=== PATIENT | female | born 1960 | race Caucasian/White ===

== ENCOUNTER 2019-01-19 07:14 | Emergency (ER) | payer OTHER ==
[~2019-01-19] VITALS: Wt 70.0 kg
[~2019-01-19 07:14] MED LIST: AZIT250T13 PO; CEPH-443 PO
[2019-01-19] MEDS ORDERED: SOD CHLORIDE 0.9% 500 ML IV STA (07:21)
[2019-01-19] MEDS ORDERED: KETOROLAC 15 MG INJ IV STA (07:21)
[2019-01-19] MEDS ORDERED: LORAZEPAM 0.5 MG TAB PO ONE (07:30)
--- NOTE | 2019-01-19 07:35 | ERD ---
ER Documentation Chief Complaint Chief Complaint chest pressure and shaking sudden onset this am. recent stressors. no sob HPI 58-year-old woman brought in by EMS from home for chest pain, palpitations, anxiety, crying, insomnia since last night. Her recently and she had trouble sleeping because she was thinking about him and became upset and developed the symptoms while in bed. She does have a history of anxiety, denies cough or shortness of breath, no fevers or chills, no vomiting or diarrhea. Patient was transported here anxious and tearful but will otherwise without complications. ROS All systems reviewed and are negative except as per history of present illness. Medications Home Meds Active Scripts Alprazolam* (Xanax*) 0.5 Mg Tab, 0.5 MG PO TID PRN for ANXIETY, #12 TAB Prov:ANGELO AHUJA MD 01/19/19 Discontinued Reported Medications Azithromycin* (Azithromycin*) 250 Mg Tablet, 750 MG PO DAILY 01/22/12 Cephalexin* (Keflex*) 500 Mg Capsule, 500 MG PO Q6 01/22/12 Allergies Allergies: Coded Allergies: No Known Allergy (Unverified , 01/19/19) PMhx/Soc Anxiety, hypertension History of Surgery: Yes (HEMORRHOID, APPENDIX) Anesthesia Reaction: No Hx Neurological Disorder: No Hx Respiratory Disorders: No Hx Cardiac Disorders: No Hx Psychiatric Problems: No Hx Miscellaneous Medical Probl: No Hx Alcohol Use: No Hx Substance Use: No Hx Tobacco Use: Yes FmHx Family History: No diabetes Physical Exam Vitals Vital Signs Date Temp Pulse Resp B/P (MAP) Pulse Ox O2 O2 Flow FiO2 Time Delivery Rate 01/19/19 87 17 125/86 99 Room Air 09:18 (99) 01/19/19 98.1 77 20 136/80 99 07:23 (98) Physical Exam Const: Anxious, tearful, afebrile Resp: Clear to auscultation bilaterally Cardio: Regular rate and rhythm, no murmurs Abd: Soft, non tender, non distended. Skin: No petechiae or rashes Back: No midline or flank tenderness Ext: No cyanosis, or edema, calves symmetrical Neur: Awake and alert x3, no focal deficits or facial asymmetry, pupils equal round reactive to light Psych: Anxious, tearful Result Diagram: 01/19/19 0752 01/19/19 0752 Results 24 hrs Laboratory Tests Test 01/19/19 07:52 White Blood Count 9.2 10^3/ul Red Blood Count 4.99 10^6/ul Hemoglobin 14.6 g/dl Hematocrit 44.8 % Mean Corpuscular Volume 89.8 fl Mean Corpuscular Hemoglobin 29.3 pg Mean Corpuscular Hemoglobin Concent 32.6 g/dl Red Cell Distribution Width 13.9 % Platelet Count 253 10^3/UL Mean Platelet Volume 10.2 fl Immature Granulocytes % 0.200 % Neutrophils % 38.8 % Lymphocytes % 51.0 % Monocytes % 6.5 % Eosinophils % 2.6 % Basophils % 0.9 % Nucleated Red Blood Cells % 0.0 /100WBC Immature Granulocytes # 0.020 10^3/ul Neutrophils # 3.6 10^3/ul Lymphocytes # 4.7 10^3/ul Monocytes # 0.6 10^3/ul Eosinophils # 0.2 10^3/ul Basophils # 0.1 10^3/ul Nucleated Red Blood Cells # 0.0 10^3/ul Sodium Level 144 mmol/L Potassium Level 4.1 mmol/L Chloride Level 109 mmol/L Carbon Dioxide Level 27 mmol/L Anion Gap 8 Blood Urea Nitrogen 13 mg/dl Creatinine 0.65 mg/dl Est Glomerular Filtrat Rate mL/min > 60 mL/min Glucose Level 98 mg/dl Calcium Level 9.3 mg/dl Total Bilirubin 0.1 mg/dl Direct Bilirubin 0.00 mg/dl Indirect Bilirubin 0.1 mg/dl Aspartate Amino Transf (AST/SGOT) 39 IU/L Alanine Aminotransferase (ALT/SGPT) 60 IU/L Alkaline Phosphatase 80 IU/L Troponin I < 0.012 ng/ml Total Protein 7.2 g/dl Albumin 4.0 g/dl Globulin 3.20 g/dl Albumin/Globulin Ratio 1.25 Lipase 153 U/L Current Medications Medications Dose Sig/Day Start Time Status Last (Trade) Ordered Route PRN Stop Time Admin Dose Reason Admin Sodium 500 ml @ Q1H STAT 01/19/19 DC 01/19/19 Chloride 500 mls/hr IV 07:21 07:49 01/19/19 08:20 Ketorolac 15 mg ONCE STAT 01/19/19 DC 01/19/19 Tromethamine IV 07:21 07:49 (Toradol) 01/19/19 07:24 Lorazepam 0.5 mg ONCE ONCE 01/19/19 DC 01/19/19 (Ativan) PO 07:30 07:49 01/19/19 07:31 Procedures/MDM IV line was established patient was placed on cardiac catheterization technician rhythm strip revealed a sinus rhythm at about 80 bpm with upright P and T waves. Patient was afebrile EKG performed, read by me: 75 bpm, normal sinus rhythm, normal axis, no acute ST segment changes, narrow QRS complex, with good R-wave progression in precordial leads. I administered 500 cc normal saline IV, Toradol 15 mg IV, lorazepam 0.5 mg p.o. x1. CBC and electrolytes are normal, liver function test normal, troponin negative Differential diagnoses considered, included but not limited to acute coronary syndrome, pulmonary embolism, aortic dissection, abdominal aortic aneurysm, s epsis, stroke, meningitis, encephalitis, pneumonia, appendicitis, cholecystitis, bowel obstruction, pyelonephritis, nephrolithiasis, cystitis, as well as metabolic, hematologic, and electrolyte abnormalities. As well as abscess, cellulitis, fractures, and dislocations. Patient feels much better at this time, and vital signs are normal, symptoms have improved. I did give strict instructions to return to the ED if symptoms continue or worsen, patient will otherwise follow-up with primary care bhupinder crawley. Patient understood instructions and agreed to plan. Disclaimer: Inadvertent spelling and grammatical errors are likely due to EHR/dictation software use and do not reflect on the overall quality of patient care. Also, please note that the electronic time recorded on this note does not necessarily reflect the actual time of the patient encounter. Departure Diagnosis: Primary Impression: Anxiety attack Additional Impressions: Chest pain Chest pain type: unspecified Qualified Codes: R07.9 - Chest pain, unspecified Insomnia Insomnia type: primary Qualified Codes: F51.01 - Primary insomnia Condition: ANGELO Joyce MD Jan 19, 2019 07:35
[2019-01-19 09:18] VITALS: BP 125/86; PULSE 87; RESP 17
[2019-01-19] MEDS ORDERED: ALPR0.5T PO (09:22)
== END 2019-01-19 10:24 | disposition home or self-care (01) ==
LOC: E/R 07:14
DX: F41.9 Anxiety disorder, unspecified (principal); F51.01 Primary insomnia; I10 Essential (primary) hypertension; Z87.891 Personal history of nicotine dependence
CPT/HCPCS: 36415; 71045; 80053; 83690; 84484; 85025; 93005; 96374; J1885; J7040; Z7502; Z7610